=== PATIENT | female | born 1950 | race Caucasian/White ===

== ENCOUNTER 2018-02-20 14:20 | Outpatient (CLI) | payer MEDICARE | END 2018-02-20 14:21 | disposition home or self-care (01) | LOC: BICMAMMO 14:20 | PROVIDERS: ATTEND Obstetrics & Gynecology | DX: Z12.31 Encounter for screening mammogram for malignant neoplasm of breast (principal) | CPT/HCPCS: 77063; 77067 ==

== ENCOUNTER 2018-10-08 21:44 | Inpatient (IN) | payer MEDICARE ==
[2018-10-09] MEDS ORDERED: Magnesium 2 GM/50 ML 2 GM in Premix Bag 1 BAG IVPB SCH (10:15)
--- NOTE | 2018-10-09 11:25 | RAD ---
CHEST ONE VIEW: HISTORY: Preop. COMPARISON: None. FINDINGS: The cardiac silhouette is magnified by projection. The pulmonary vasculature is unremarkable. The m ediastinum is midline with aortic calcification. No lobar consolidation or evidence of pneumothorax. IMPRESSION: 1. Atherosclerosis. 2. No active cardiopulmonary abnormalities are otherwise demonstrated. POS: [facility]
[2018-10-09] MEDS ORDERED: Promethazine HCl 25 MG/ML VIAL IM PRN (11:45)
[2018-10-09] MEDS ORDERED: Ondansetron PF 4 MG/2 ML Vial IVP PRN (11:45)
[2018-10-09] MEDS ORDERED: Sodium Chloride 0.9% 1,000 ML IV SCH (11:45)
[2018-10-09] MEDS ORDERED: Dextrose 50% Abboject 50 ML SYRINGE SLOW IVP PRN (11:45)
[2018-10-09] MEDS ORDERED: hydrALAZINE 20 MG/ML VIAL SLOW IVP PRN (11:45)
[2018-10-09] MEDS ORDERED: Morphine 2 MG/ML SYRINGE SLOW IVP PRN (11:45)
[2018-10-09] MEDS ORDERED: Dextrose 5% in Water 1,000 ML IV PRN (11:45)
[2018-10-09] MEDS ORDERED: traMADol HCl 50 MG TAB PO PRN (11:50)
--- NOTE | 2018-10-09 11:54 | RAD ---
PELVIS ONE VIEW: HISTORY: Fall. COMPARISON: None. FINDINGS: Mild degenerative disease of both SI joints. Small bilateral acetabular osteophyte formation. Moder ate vascular calcifications. Phleboliths in the pelvis. Intertrochanteric fracture, left femur. IMPRESSION: Intertrochanteric fracture, left femur, without significant displacement. POS: [facility]
--- NOTE | 2018-10-09 12:09 | RAD ---
LEFT HIP TWO VIEWS: HISTORY: Fall with left hip pain. FINDINGS: Two views of the left hip show an intratrochanteric fracture of the left femur. No degenerative sanchez ges are seen in the left hip. IMPRESSION: Intertrochanteric left femur fracture. POS: [facility]
--- NOTE | 2018-10-09 12:10 | HP ---
ATTENDING SURGEON: Dr. Espinoza. TRAUMA ACTIVATION: Not applicable. HISTORY OF PRESENT ILLNESS: This is a 67-year-old female, who presented to [facility] Emergency Room, status post mechanical fall approximately 5 days ago. Per patient, she was at home in her kitchen, attempting to make a baked potato when she slipped on some butter and fell, striking her left hip. The patient denies head trauma or loss of consciousness. She had immediate onset of left lower extremity pain with difficulty to ambulate, so she crawled to her room where she laid for the next five days, relatively immobile. Earlier today, she decided to leave her room to get help. She was seen and evaluated in emergency room and found to have a left subtrochanteric hip fracture. Orthopedic Surgery was notified and Trauma Service was asked to admit. Upon my evaluation, the patient has a chief complaint of left hip pain, worsened with movement, improved with rest and pain medications. The patient does admit to some delirium since the time of her accident, but states she was otherwise in her normal state of health. She also endorses malodorous urine. MEDICAL HISTORY: ALLERGIES: CODEINE. PAST MEDICAL HISTORY: Hypertension, vertigo, macular degeneration. HOME MEDICATIONS: The patient states she takes antihypertensives, but does not know the name or dose. Pharmacy is [facility]. PAST SURGICAL HISTORY: Partial hysterectomy later turned into a complete hysterectomy, stomach banding. FAMILY HISTORY: Significant for mother from an unknown cancer. Sister , bladder cancer. Father with history of prostate cancer and dementia. SOCIAL HISTORY: The patient lives alone. Ambulates independently. She drinks vodka 1 to 2 drinks on almost daily basis. She is a one pack per day smoker greater than 50 years. REVIEW OF SYSTEMS: A 10-point review of systems is performed and essentially negative except as indicated in HPI. PHYSICAL EXAMINATION: VITAL SIGNS: On evaluation, heart rate 62, blood pressure 100/66, O2 saturation 96% on room air, and respiratory rate of 16. GENERAL: Well-developed, elderly female, in no acute distress, resting in bed. HEENT: Head is normocephalic, atraumatic. Eyes, pupils are PERRL. Extraocular movements are intact. NECK: Supple. Trachea is midline. Range of motion was within normal limits for patient. CHEST: Atraumatic. Nontender to palpation. Normal work of breathing. Symmetric rise. LUNGS: Clear to auscultation bilaterally. CARDIOVASCULAR: Regular rate and rhythm. No obvious murmurs, rubs, or gallops. GI: Abdomen is atraumatic, soft, nontender, nondistended. Bowel sounds are positive. There is no palpable organomegaly. MUSCULOSKELETAL: Pelvis is stable. BACK: Within normal limits for the patient. EXTREMITIES: Bilateral upper extremities within normal limits. Right lower extremity within normal limits. Left lower extremity range of motion is limited secondary to pain. She is neurovascularly intact distal to site of her injury. There is no pedal edema. NEUROLOGIC: GCS is 15. No focal deficit is noted. LABORATORY FINDINGS: WBC 10.2, hemoglobin 14.4, hematocrit 43.3, and platelet count 348. Sodium 135, potassium 4.3, chloride 97, carbon dioxide 21, BUN 76, creatinine 2.51, glucose 98. CK is 1007. AST and ALT within normal limits. T bilirubin 0.7. Urinalysis and troponins are pending. EKG with normal sinus rhythm, heart rate of 61, nonspecific T-wave inversions in precordial leads. Chest x-ray, reviewed by me with no acute cardiopulmonary process, hyperinflated lungs. Left hip x-ray reported preliminary read by Radiology as left subtrochanteric hip fracture. ASSESSMENT: 1. Status post mechanical fall. 2. Left subtrochanteric hip fracture. 3. Acute traumatic pain. 4. Abnormal EKG. 5. Acute kidney injury. 6. Mild rhabdomyolysis. 7. History of hypertension. 8. Reported delirium at home. PLAN: [place] to [place]. The patient should be n.p.o. with medications. Orthopedic Surgery plans for operative intervention pending clearance. Echocardiogram given abnormal EKG and long smoking history. Reconcile home medications. IV fluids and fully monitor urine output. Urinalysis. Repeat a.m. labs. Perioperative pain management with p.o. and IV analgesics. Postoperative PT and OT. DVT and gastritis prophylaxis when appropriate. The patient was discussed with Trauma attending. Plan for admission was discussed with the patient. All questions were answered at the time of dictation. Job ID: [id number] MTDD
--- NOTE | 2018-10-09 12:15 | CON ---
DATE OF CONSULTATION: 10/09/2018 This is Mayela Hernandez PA-C dictating a report for Riaz Arriaga MD. CONSULTING PHYSICIAN: Riaz Arriaga MD REASON FOR CONSULTATION: Left hip fracture. HISTORY OF PRESENT ILLNESS: This is a 67-year-old female, who states that approximately 5 days ago, she got up from the couch while watching a movie when she slipped and fell in her kitchen. She states that she was able to make it to her bedroom where she laid down, but then was not able to get out of bed for the next 5 days. Eventually, she was brought to our emergency department last night after some family came to check on her. She has been admitted by Trauma Services. She is currently receiving workup and further care for rhabdomyolysis and acute renal failure. We have been consulted as there was a finding of a left hip fracture on her ER evaluation. Currently at bedside, the patient reports left hip pain. Denies numbness or tingling. Denies hitting her head or any loss of consciousness at the time of the fall. She denies any other extremity pain at this time. PAST MEDICAL HISTORY: Significant for hypertension. PAST SURGICAL HISTORY: Significant for partial hysterectomy, multiple tooth extractions, and lap band surgery. SOCIAL HISTORY: The patient lives at home alone. She is an independent ambulator. [place] She is a smoker and a drinker. She states she smokes approximately 1 pack per day and drinks vodka daily approximately 5 shots per day. FAMILY HISTORY: Reviewed, noncontributory. REVIEW OF SYSTEMS: A 10-point review of systems conducted and otherwise negative except for stated above. PHYSICAL EXAMINATION: VITAL SIGNS: Temperature of 97.6, pulse of 65, respiratory rate of 20, and blood pressure of 98/66. GENERAL: The patient is awake and alert. She is in no apparent distress. She is evaluated in the step-down unit at this time. No family is currently at bedside. She is awake and comfortable. She is pleasant with exam findings today. HEENT: Head is normocephalic and atraumatic. NECK: Supple. Trachea midline. Breathing nonlabored. EXTREMITIES: The left lower extremity was evaluated. There is no significant shortening noticed, slight external rotation. She is able to move her toes. No lesions to the skin overlying the left hip. RADIOGRAPHIC FINDINGS: Reviewed including 2 views of the left hip as well as an AP pelvis, demonstrates a basicervical intertrochanteric hip fracture with minimal displacement. No other acute fractures are noticeable. ASSESSMENT: Left hip fracture. PLAN: At this time, the patient is admitted to Trauma Services. She has not been cleared for surgery secondary to poor renal function. She will be managed by the Trauma Services. We will check on her again in the morning and see if she is improved overnight, if she will be cleared for surgery. We will plan on open reduction and internal fixation of this fracture tomorrow or as soon as she is cleared by Trauma Services. Plan of care discussed with the patient today. She verbalized understanding and is amenable to the plan of care. Risks, benefits, and alternatives discussed at length with her today. These include, but are not limited to bleeding, infection, nonunion, malunion or worsening in her condition. We will proceed with the plan of care and hopefully make her n.p.o. after midnight tonight. Job ID: [id number]
--- NOTE | 2018-10-09 12:18 | RAD ---
LEFT FEMUR TWO VIEWS: HISTORY: Fall. COMPARISON: None. FINDINGS: There is an intertrochanteric fracture of the left femur, along with varus angulation and impaction. The distal femur is intact. Mild vascular calcifications. IMPRESSION: Intertrochanteric fracture, left femur. POS: [facility]
[2018-10-09 12:30] LABS: Troponin I 0.027 ng/mL (< 0.028)
[2018-10-09 12:32] LABS: Lactic Acid 1.2 mmol/L (0.5-2.2)
[2018-10-09 12:37] VITALS: BMI 22.4
[2018-10-09] MEDS ORDERED: Hydrocortisone Sod Succ/PF 100 mg/2 ml Vial IVP SCH (13:00)
[2018-10-09] MEDS ORDERED: Morphine 2 MG/ML SYRINGE SLOW IVP SCH (13:00)
[2018-10-09] MEDS: Acetaminophen 500 MG TAB PO SCH ×2 (13:23→17:51)
[2018-10-09] MEDS: Oxazepam 10 MG CAP PO SCH ×2 (13:23→20:34)
[2018-10-09 14:28] LABS: Hemoglobin 12.1 g/dL (12.0-16.0); Mean Corpuscular HGB CONC 32.9 g/dL (32.0-36.0); Mean Corpuscular Hemoglobin 35.4 pg (27.0-31.0); Mean Platelet Volume 7.4 fL (7.4-10.4); Platelet Count 302 thou/uL (130-400); RBC Distribution Width 12.2 % (11.5-14.5); Red Blood Cell (RBC) Count 3.42 mill/uL (4.20-5.40); White Blood Cell (WBC) Count 8.2 thou/uL (4.8-10.8)
[2018-10-09 14:29] LABS: #Basophils 0.1 thou/uL (0.0-0.2); #Eosinphils 0.2 thou/uL (0.0-0.7); #Lymphocytes 1.4 thou/uL (1.20-3.40); #Monocytes 0.9 thou/uL (0.11-0.59); #Neutrophils 5.7 thou/uL (1.40-6.50); %Basophils 0.8 % (0.0-1.0); %Eosinophils 1.9 % (0.0-10.0); %Lymphocytes 16.9 % (21.0-51.0); %Monocytes 10.6 % (0.0-10.0); %Neutrophils 69.8 % (42.0-75.0); Macrocytosis SLIGHT = 6-15 cells (100X) (0-5/hpf); Platelet Morphology Comment Appears Adequate
[2018-10-09 14:45] LABS: Anion Gap 15 mmol/L (10-20); BUN (Urea Nitrogen) 76 mg/dL (9.8-20.1); Calc. Creatinine Clearance 23 mL/min (70-130); Calcium 8.7 mg/dL (7.8-10.44); Carbon Dioxide 20 mmol/L (23-31); Chloride 105 mmol/L (98-107); Estimated GFR-MDRD 20; Glucose 83 mg/dL (80-115); Magnesium 1.7 mg/dL (1.6-2.6); Phosphorus 4.9 mg/dL (2.3-4.7); Potassium 4.4 mmol/L (3.5-5.1); Sodium 136 mmol/L (136-145)
[2018-10-09] MEDS: Sodium Bicarbonate 150 MEQ in Dextrose 5% in Water 1,000 ML IV SCH ×2 (14:45→20:34)
[2018-10-09 14:46] LABS: Troponin I 0.043 ng/mL (< 0.028)
[2018-10-09 16:19] LABS: Bilirubin Large (Negative); Blood, Urine Negative (Negative); Clarity Turbid (Clear); Glucose, Urine (Dipstick) Negative (Negative); Leukocyte Moderate (Negative); Nitrite Negative (Negative); Protein, Urine (Dipstick) 30 mg/dL (Neg-Trace); Specific Gravity, Urine 1.019 (1.002-1.036)
[2018-10-09 16:20] LABS: Bacteria/HPF 4+ HPF (None Seen); Hyaline Casts/LPF NONE SEEN LPF (0-3 Hyaline); RBC/HPF 0-3 HPF (0-3); Squamous Epithelial None Seen HPF (0-3)
--- NOTE | 2018-10-09 16:27 | PRG ---
DATE OF SERVICE: 10/09/2018 SUBJECTIVE: The patient was seen this morning lying in bed. Reported pain is well controlled. Asking to have food and water. Otherwise, she had no complaints. Overnight, the patient did receive 2 L of IV fluids and 1 L of albumin for low urinary output and hypotension. The patient is otherwise not tachycardic and hemoglobin is stable. Yesterday, troponins were slightly elevated and the patient had diffuse T-wave inversions on EKG. Echo is pending at this time. CK was also elevated at 1000. The patient with rhabdo and acute kidney injury, monitored at this time. She denies nausea, vomiting, and diarrhea. OBJECTIVE: VITAL SIGNS: Temperature 97.6, pulse 65, respirations 20, oxygen saturation 99% on room air, blood pressure 98/66. GENERAL: Well-appearing elderly female, lying in bed with no signs of acute distress. RESPIRATORY: Equal chest rise and fall. Clear breath sounds bilaterally. No signs of acute respiratory distress. CARDIAC: Regular rate and rhythm. No murmurs, gallops, or rubs. GASTROINTESTINAL: Abdomen is soft, nontender, nondistended. Pelvis is stable. Left hip with mild tenderness. EXTREMITIES: 2+ pulses in all extremities. No significant swelling noted. GENITOURINARY: Garnica in place with orange urine in bag. NEURO: GCS is 15. Gross motor and sensation is intact. No signs of alcohol withdrawal. LABORATORY FINDINGS: White count 8.2, hemoglobin 12.1, hematocrit 36.9, platelets 302. Sodium 136, potassium 4.4, chloride 105 carbon dioxide 20, BUN 76, creatinine 2.43, glucose 83, lactic acid 1.2, phos 4.9, magnesium 1.7. CK 415, troponin 0.45, then 0.27. DIAGNOSTIC FINDINGS: Echo completed today demonstrates no cardiac dysfunction. ASSESSMENT: 1. Status post mechanical fall with prolonged down time. 2. Left hip fracture. 3. Rhabdomyolysis. 4. Renal failure secondary to rhabdomyolysis. 5. Acute dehydration. PLAN: The patient is to remain in the IMCU. Dr. Arriaga of Orthopedic Surgery would like take the patient to the OR for fixation of the left hip fracture. However, this will be delayed until tomorrow. The patient's kidney function has not yet improved. The patient to receive bicarb at 150 an hour. We will discontinue normal saline at 150 an hour. Continue Garnica and monitor urinary output q.1 hour. Magnesium replaced. The patient also started on Serax to prevent alcohol withdrawal. The patient can have a regular diet today and will be n.p.o. over midnight in case she is ready to go to the OR tomorrow with Dr. Arriaga. She will work with Physical and Occupational Therapy postoperatively. Also, follow up cortisol level. The patient was seen and examined by Dr. Arevalo and myself this morning during rounds. Job ID: [id number]
[2018-10-09 17:52] LABS: ALT (SGPT) 22 U/L (8-55); AST (SGOT) 57 U/L (5-34); Albumin 4.5 g/dL (3.4-4.8); Alkaline Phosphatase 76 U/L (40-150); Anion Gap 21 mmol/L (10-20); BUN (Urea Nitrogen) 76 mg/dL (9.8-20.1); Bilirubin, Total 0.7 mg/dL (0.2-1.2); CK (CPK) 1007 U/L (29-168); Calc. Creatinine Clearance 22 mL/min (70-130); Calcium 10.8 mg/dL (7.8-10.44); Carbon Dioxide 21 mmol/L (23-31); Chloride 97 mmol/L (98-107); Estimated GFR-MDRD 19; Globulin 3.4 g/dL (2.4-3.5); Glucose 98 mg/dL (80-115); Potassium 4.3 mmol/L (3.5-5.1); Protein, Total 7.9 g/dL (5.8-8.1); Sodium 135 mmol/L (136-145)
[2018-10-09 17:57] LABS: Hemoglobin 14.4 g/dL (12.0-16.0); Mean Corpuscular HGB CONC 33.2 g/dL (32.0-36.0); White Blood Cell (WBC) Count 10.2 thou/uL (4.8-10.8)
[2018-10-09 17:58] LABS: #Eosinphils 0.1 thou/uL (0.0-0.7); #Lymphocytes 1.8 thou/uL (1.20-3.40); #Monocytes 1.5 thou/uL (0.11-0.59); #Neutrophils 6.7 thou/uL (1.40-6.50); %Basophils 0.4 % (0.0-1.0); %Eosinophils 1.3 % (0.0-10.0); %Lymphocytes 17.9 % (21.0-51.0); %Monocytes 14.7 % (0.0-10.0); %Neutrophils 65.7 % (42.0-75.0); Mean Platelet Volume 7.4 fL (7.4-10.4); Platelet Count 348 thou/uL (130-400); RBC Distribution Width 12.2 % (11.5-14.5)
[2018-10-09] MEDS ORDERED: traMADol HCl 50 MG TAB PO SCH (18:00)
[2018-10-09 18:35] LABS: INR-International Normal Ratio 0.9; PTT 23.9 SEC (22.9-36.1); Prothrombin Time 12.7 SEC (12.0-14.7)
[2018-10-09 20:32] LABS: CKMB 2.8 ng/mL (0-6.6); Troponin I 0.028 ng/mL (< 0.028)
[2018-10-09] MEDS: Famotidine 20 MG TAB PO SCH (20:35)
[2018-10-09] MEDS: Senokot S 8.6-50 MG TAB PO SCH (20:35)
[2018-10-09] MEDS: traMADol HCl 50 MG TAB PO PRN (21:08)
[2018-10-10] MEDS: Acetaminophen 500 MG TAB PO SCH ×5 (01:15→23:16)
[2018-10-10] MEDS: Oxazepam 10 MG CAP PO SCH ×4 (03:50→20:23)
[2018-10-10] MEDS: Sodium Bicarbonate 150 MEQ in Dextrose 5% in Water 1,000 ML IV SCH (04:21)
[2018-10-10] MEDS: traMADol HCl 50 MG TAB PO PRN (05:58)
[2018-10-10] MEDS ORDERED: Hydrocortisone Sod Succ/PF 100 mg/2 ml Vial IVP SCH (07:23)
[2018-10-10] MEDS: Hydrocortisone Sod Succ/PF 100 mg/2 ml Vial IVP SCH ×3 (08:00→20:24)
[2018-10-10] MEDS: Famotidine 20 MG TAB PO SCH (09:00)
[2018-10-10 09:06] LABS: #Eosinphils 0.2 thou/uL (0.0-0.7); #Lymphocytes 1.7 thou/uL (1.20-3.40); #Monocytes 0.9 thou/uL (0.11-0.59); %Basophils 0.5 % (0.0-1.0); %Eosinophils 1.9 % (0.0-10.0); %Lymphocytes 19.4 % (21.0-51.0); %Monocytes 10.1 % (0.0-10.0); %Neutrophils 68.1 % (42.0-75.0); Mean Corpuscular HGB CONC 33.8 g/dL (32.0-36.0); Mean Corpuscular Hemoglobin 36.8 pg (27.0-31.0); Mean Platelet Volume 7.2 fL (7.4-10.4); Platelet Count 262 thou/uL (130-400); RBC Distribution Width 12.2 % (11.5-14.5); White Blood Cell (WBC) Count 8.7 thou/uL (4.8-10.8)
[2018-10-10 09:23] LABS: MDiff Complete? YES; Macrocytosis SLIGHT = 6-15 cells (100X) (0-5/hpf); Platelet Morphology Comment Appears Adequate
[2018-10-10 09:24] LABS: Lactic Acid 1.1 mmol/L (0.5-2.2)
[2018-10-10 09:29] LABS: Anion Gap 11 mmol/L (10-20); BUN (Urea Nitrogen) 53 mg/dL (9.8-20.1); CK (CPK) 142 U/L (29-168); Calc. Creatinine Clearance 38 mL/min (70-130); Calcium 8.6 mg/dL (7.8-10.44); Carbon Dioxide 29 mmol/L (23-31); Chloride 98 mmol/L (98-107); Estimated GFR-MDRD 36; Glucose 98 mg/dL (80-115); Magnesium 2.1 mg/dL (1.6-2.6); Phosphorus 2.6 mg/dL (2.3-4.7); Potassium 3.3 mmol/L (3.5-5.1); Sodium 135 mmol/L (136-145)
[2018-10-10] MEDS ORDERED: Fentanyl 100 MCG/2 ML VIAL ONE ×2 (12:13→12:34)
[2018-10-10] MEDS ORDERED: Prevnar 13-Val Conj/PF 0.5 ML SYRINGE IM ONE (13:30)
[2018-10-10] MEDS: Polyethylene Glycol 3350 17 GM Packet PO SCH (13:30)
[2018-10-10] MEDS: Senokot S 8.6-50 MG TAB PO SCH ×2 (13:31→20:24)
[2018-10-10] MEDS: traMADol HCl 50 MG TAB PO SCH ×3 (13:33→23:16)
[2018-10-10] MEDS: Lactated Ringer's 1,000 ML IV SCH ×2 (13:58→23:20)
[2018-10-10] MEDS ORDERED: CEFAZOLIN 2 GM in Premix Bag 1 BAG IVPB SCH (14:00)
--- NOTE | 2018-10-10 14:27 | RAD ---
LEFT HIP TWO VIEWS: HISTORY: Status post ORIF. FINDINGS: A compression screw has been placed, stabilizing an intertrochanteric fracture of the left hip. IMPRESSION: Status post compression screw, open reduction and internal fixation, left hip, intertrochanteric frac ture. POS: [facility]
[2018-10-10] MEDS ORDERED: ePHEDrine 50 MG/ML VIAL ONE (16:10)
[2018-10-10] MEDS ORDERED: Ondansetron PF 4 MG/2 ML Vial ONE (16:10)
[2018-10-10] MEDS ORDERED: PROPOFOL 200 MG/20 ML VIAL ONE (16:10)
[2018-10-10] MEDS ORDERED: Rocuronium Bromide 10 MG/ML (10ML VIAL) ONE (16:10)
[2018-10-10] MEDS ORDERED: Dexamethasone 20 MG/5 ML VIAL ONE (16:10)
[2018-10-10] MEDS ORDERED: Sulfameth/Trimethoprim DS 800-160mg TAB PO SCH (16:45)
--- NOTE | 2018-10-10 17:03 | PRG ---
DATE OF SERVICE: 10/10/2018 SUBJECTIVE: Kacy Esteban is a 67-year-old female, status post ground level fall resulting in a left hip fracture. She is hospital day 2, postop day 0. The patient is being seen postoperatively. Upon my evaluation, she has a complaint of minimal left hip pain. Otherwise, she vocalized no complaint. OBJECTIVE: VITAL SIGNS: Most recent vital signs; blood pressure 133/82, pulse 63, respirations 18, O2 saturation 91% and 93% on room air. GENERAL: Elderly appearing female, in no acute distress, resting in bed. PULMONARY: Normal work of breathing. Symmetric rise. CARDIOVASCULAR: Regular rate and rhythm. GI: Abdomen is soft, nontender, nondistended. MUSCULOSKELETAL: Moves all extremities x4. NEURO: No focal deficit is noted. LABORATORY FINDINGS: WBC 8.7, hemoglobin 11.0, hematocrit 32.7, and platelet count 262. Sodium 135, potassium 3.3, chloride 98, carbon dioxide 29, BUN 53, creatinine 1.45, glucose 98, phosphorus 2.6, magnesium 2.1. CK 142. Urinalysis, microbiology with presumptive E coli greater than 100,000 colony-forming units. ASSESSMENT: 1. Status post ground level fall. 2. Left hip fracture, postop day 0. 3. Acute traumatic pain. 4. Escherichia coli urinary tract infection present on admission. 5. Mild rhabdomyolysis, resolved. 6. Acute renal failure, improving. 7. Acute blood loss anemia. 8. Electrolyte abnormality. 9. Adrenal insufficiency PLAN: Start the patient on antibiotics for 5 days for UTI. The patient's cortisol level was 11 on hospital admission associated with hypotension. We will continue IV steroids until out of the immediate postoperative window. Postoperative pain management with p.o. analgesics. Postoperative PT and OT. Discontinue Garnica in the morning. The patient is a daily drinker, continue Serax. A.m. labs. Continue to monitor and transfuse for hemoglobin less than 7 or symptomatic anemia. Rehab screen as the patient lived independently prior to her accident. Plan of care was discussed with the patient at bedside and all questions were answered at the time of dictation. The patient was discussed with Trauma attending. Job ID: [id number] [facility]
--- NOTE | 2018-10-10 17:49 | OP ---
DATE OF PROCEDURE: 10/10/2018 PROCEDURE PERFORMED: Left proximal femur open reduction and fixation with dynamic hip screw. PREOPERATIVE DIAGNOSIS: Left intertrochanteric femur fracture. POSTOPERATIVE DIAGNOSIS: Left intertrochanteric femur fracture. COMPLICATIONS: None. ESTIMATED BLOOD LOSS: 100 mL. ANESTHESIA: General. SCHEDULING SPECIALIST: Mayela Hernandez PA-C. IMPLANTS: Synthes DHS screw and side plate 3-hole, 135 degree. INDICATIONS: Ms. Esteban is a 67-year-old female, who has fallen and fractured the left proximal femur. She was indicated for dynamic hip screw fixation to restore anatomic alignment, promote healing, and prevent complications of prolonged bedrest. Risks have been reviewed in detail. She elected to proceed with the operation. DESCRIPTION OF PROCEDURE: Ms. Esteban was identified in the preoperative holding area. Her correct extremity was marked. She was carried to the operating room. She was positioned supine. General anesthesia was induced. A multidisciplinary time-out was performed. The left lower extremity was prepped and draped in a sterile fashion. At this point, we proceeded with incision over the proximal thigh. We dissected down through the subcutaneous tissues to the fascia, which was opened. We retracted the vastus lateralis anteriorly and then exposed the femur. At this point, we placed a 135-degree guide. This was evaluated with x-ray. We inserted a guidewire in the center-center position of the femoral head. We measured and then over-reamed the guidewire with the triple reamer. We then placed an 85-mm hip screw and impacted a 3-hole side plate. Three screws were placed in the plate. We took final x-ray images. There were no complications. We closed in layers appropriately. The patient was taken to the recovery room. Job ID: [id number]
[2018-10-10] MEDS: CEFAZOLIN 2 GM in Premix Bag 1 BAG IVPB SCH (18:24)
[2018-10-10] MEDS ORDERED: DEXTROSE 5% IVPB SCH (21:00)
[2018-10-10] MEDS ORDERED: WATER IVPB SCH (21:00)
[2018-10-10] MEDS ORDERED: SULFAMETHOXAZOLE IVPB SCH (21:00)
[2018-10-10] MEDS ORDERED: TRIMETHOPRIM IVPB SCH (21:00)
[2018-10-11] MEDS: Hydrocortisone Sod Succ/PF 100 mg/2 ml Vial IVP SCH ×4 (02:46→20:01)
[2018-10-11] MEDS: CEFAZOLIN 2 GM in Premix Bag 1 BAG IVPB SCH (02:47)
[2018-10-11] MEDS: traMADol HCl 50 MG TAB PO SCH ×4 (04:37→22:16)
[2018-10-11] MEDS: Oxazepam 10 MG CAP PO SCH ×3 (04:37→20:02)
[2018-10-11] MEDS: Acetaminophen 500 MG TAB PO SCH ×3 (05:55→18:06)
[2018-10-11] MEDS: Lactated Ringer's 1,000 ML IV SCH ×2 (05:57→18:09)
[2018-10-11 06:49] LABS: #Lymphocytes 0.6 thou/uL (1.20-3.40); #Monocytes 0.8 thou/uL (0.11-0.59); #Neutrophils 7.5 thou/uL (1.40-6.50); %Eosinophils 0.1 % (0.0-10.0); %Lymphocytes 7.2 % (21.0-51.0); %Monocytes 8.4 % (0.0-10.0); %Neutrophils 84.3 % (42.0-75.0); Hemoglobin 10.8 g/dL (12.0-16.0); Mean Corpuscular Hemoglobin 35.8 pg (27.0-31.0); Mean Platelet Volume 7.5 fL (7.4-10.4); Platelet Count 282 thou/uL (130-400); RBC Distribution Width 11.8 % (11.5-14.5); Red Blood Cell (RBC) Count 3.01 mill/uL (4.20-5.40); White Blood Cell (WBC) Count 8.9 thou/uL (4.8-10.8)
[2018-10-11 07:06] LABS: Anion Gap 10 mmol/L (10-20); BUN (Urea Nitrogen) 33 mg/dL (9.8-20.1); Calc. Creatinine Clearance 52 mL/min (70-130); Calcium 8.8 mg/dL (7.8-10.44); Carbon Dioxide 33 mmol/L (23-31); Chloride 95 mmol/L (98-107); Estimated GFR-MDRD 44; Glucose 117 mg/dL (80-115); Magnesium 1.8 mg/dL (1.6-2.6); Phosphorus 2.7 mg/dL (2.3-4.7); Sodium 134 mmol/L (136-145)
[2018-10-11] MEDS: Polyethylene Glycol 3350 17 GM Packet PO SCH (08:51)
[2018-10-11] MEDS: Multivitamin W/ Minerals 1 TAB PO SCH (08:51)
[2018-10-11] MEDS: Senokot S 8.6-50 MG TAB PO SCH ×2 (08:51→20:05)
[2018-10-11] MEDS: Thiamine 100 MG TAB PO SCH (08:51)
[2018-10-11] MEDS: Folic Acid 1 MG TAB PO SCH (08:52)
[2018-10-11] MEDS: Sulfameth/Trimethoprim DS 800-160mg TAB PO SCH ×2 (08:52→20:02)
[2018-10-11] MEDS: Famotidine 20 MG TAB PO SCH (08:52)
[2018-10-11] MEDS: traMADol HCl 50 MG TAB PO PRN (09:12)
--- NOTE | 2018-10-11 14:56 | PRG ---
DATE OF SERVICE: 10/11/2018 SUBJECTIVE: This is a 67-year-old lady, status post ground level fall resulting in a left hip fracture. She is hospital day #3, postop day #1. The patient had a delayed presentation post fall approximately 5 days. The patient is sitting up in the chair, in no acute distress. The patient vocalizes no complaints. Reports pain is controlled at this time. The patient has been ambulating with a walker with physical therapy. OBJECTIVE: VITAL SIGNS: Temperature 98.0, pulse 60, respirations 16, SpO2 of 93% on 1.5 L, and blood pressure 120/78. GENERAL: The patient is awake and alert, in no acute distress, elderly appearing, sitting up in the chair. PULMONARY: Normal work of breathing, symmetric chest rise. CARDIOVASCULAR: Regular rate and rhythm. GI: Abdomen is soft, nontender, and nondistended. MUSCULOSKELETAL: Moves all extremities x4, positive distal pulses. NEURO: No focal deficits. LABORATORY DATA: WBC 8.9, RBC 3.01, hemoglobin 10.8, hematocrit 32.7, and platelets 282. Sodium 134, potassium 4.0, chloride 95, BUN 33, creatinine 1.22, estimated GFR 44, glucose 117, calcium 8.8, phosphorus 2.7, and magnesium 1.8. ASSESSMENT: 1. Status post ground level fall. 2. Left hip fracture, postop day #1. 3. Urinary tract infection present on admission. 4. Mild rhabdomyolysis, resolved. 5. Acute renal failure, improving. 6. Acute blood loss anemia, stable. 7. Adrenal insufficiency, improving. PLAN: Continue the patient's antibiotics for UTI. Continue IV steroids for adrenal insufficiency. Continue pain regimen. Continue physical and occupational therapy. We will discontinue the patient's Garnica. Continue Serax as the patient is a daily drinker. The patient is pending rehab screen. The plan was discussed with the patient, who agrees, but also states that her family is coming into town from [place] and most likely will be able to go home. The plan was discussed with the attending physician, who agrees. Job ID: [id number]
[2018-10-12] MEDS: Acetaminophen 500 MG TAB PO SCH ×5 (00:31→23:26)
[2018-10-12] MEDS: Hydrocortisone Sod Succ/PF 100 mg/2 ml Vial IVP SCH ×3 (02:27→20:23)
[2018-10-12] MEDS: traMADol HCl 50 MG TAB PO SCH ×4 (04:31→21:42)
[2018-10-12] MEDS: Lactated Ringer's 1,000 ML IV SCH ×3 (04:31→21:43)
[2018-10-12] MEDS: Oxazepam 10 MG CAP PO SCH ×3 (04:31→20:24)
[2018-10-12] MEDS: Folic Acid 1 MG TAB PO SCH (08:25)
[2018-10-12] MEDS: Sulfameth/Trimethoprim DS 800-160mg TAB PO SCH ×2 (08:25→20:24)
[2018-10-12] MEDS: Multivitamin W/ Minerals 1 TAB PO SCH (08:25)
[2018-10-12] MEDS: Famotidine 20 MG TAB PO SCH (08:25)
[2018-10-12] MEDS: Thiamine 100 MG TAB PO SCH (08:25)
[2018-10-12] MEDS: traMADol HCl 50 MG TAB PO PRN (08:28)
[2018-10-12] MEDS: Polyethylene Glycol 3350 17 GM Packet PO SCH (08:34)
[2018-10-12] MEDS: Senokot S 8.6-50 MG TAB PO SCH ×2 (08:34→20:25)
--- NOTE | 2018-10-13 00:17 | PRG ---
DATE OF SERVICE: 10/12/2018 SUBJECTIVE: This is a 67-year-old lady, status post ground level fall resulting in left hip fracture. The patient is postop day #2. The patient did have a delayed presentation 5 days post injury. The patient is ambulating with a walker with physical therapy. The patient reports pain is well controlled. The patient had no overnight events. OBJECTIVE: VITAL SIGNS: Temperature 98.1, pulse 73, respirations 16, SpO2 of 94% on 2 L, and blood pressure 148/84. GENERAL: The patient is awake, alert, in no distress. PULMONARY: Normal work of breathing, chest is symmetrical. CARDIOVASCULAR: Regular rate and rhythm. GI: Abdomen is soft, nontender, nondistended. MUSCULOSKELETAL: Moves all extremities, positive distal pulses. NEUROLOGICAL: No focal deficits. LABORATORY DATA: There is no labs to evaluate today. IMPRESSION: 1. Status post ground level fall. 2. Left hip fracture, postop day #2. 3. Urinary tract infection, present on admission. 4. Mild rhabdomyolysis, resolved. 5. [id number] renal failure, stage 3. 6. Acute blood loss anemia, stable. 7. Adrenal insufficiency, improved. PLANS: Continue the patient's antibiotics. We will taper the patient's steroids for adrenal insufficiency as blood pressures improve. We will continue supportive care. We will continue Physical and Occupational Therapy. The patient wishes to go home with family. We will re-evaluate the patient tomorrow and make sure she is safe to go home using a walker. The plan has been discussed with the patient who agrees. The plan was discussed with the attending physician, who agrees. Job ID: [id number]
[2018-10-13] MEDS: Oxazepam 10 MG CAP PO SCH ×2 (03:40→13:58)
[2018-10-13] MEDS: traMADol HCl 50 MG TAB PO SCH ×3 (03:40→17:09)
[2018-10-13] MEDS: Acetaminophen 500 MG TAB PO SCH ×2 (06:06→13:57)
[2018-10-13] MEDS: Folic Acid 1 MG TAB PO SCH (08:38)
[2018-10-13] MEDS: Sulfameth/Trimethoprim DS 800-160mg TAB PO SCH (08:38)
[2018-10-13] MEDS: Multivitamin W/ Minerals 1 TAB PO SCH (08:38)
[2018-10-13] MEDS: Polyethylene Glycol 3350 17 GM Packet PO SCH (08:39)
[2018-10-13] MEDS: Senokot S 8.6-50 MG TAB PO SCH (08:39)
[2018-10-13] MEDS: Thiamine 100 MG TAB PO SCH (08:39)
[2018-10-13] MEDS ORDERED: Aspirin 81 mg Enteric Coated Tablet PO SCH (09:00)
[2018-10-13] MEDS: Hydrocortisone Sod Succ/PF 100 mg/2 ml Vial IVP SCH (15:14)
[2018-10-13] MEDS: Lactated Ringer's 1,000 ML IV SCH (15:15)
[2018-10-13 16:35] VITALS: BP 138/82; TEMP 97.7
[2018-10-13] MEDS ORDERED: Lisinopril/Hydrochlorothiazide 20 mg/12.5 mg Tablet PO SCH (21:00)
--- NOTE | 2018-10-14 04:40 | DIS ---
DATE OF ADMISSION: 10/09/2018 DATE OF DISCHARGE: 10/13/2018 This is Rossi Sidhu NP dictating a report for Albert Espinoza MD. CONSULTS: Orthopedic Surgery, Dr. Alcala. PROCEDURES: 1. On 10/09/2018, chest x-ray, impression, atherosclerosis. No active cardiopulmonary abnormalities. 2. Femur x-ray, intertrochanteric fracture of left femur. 3. Hip x-ray, intertrochanteric left femur fracture. 4. Pelvis x-ray, intertrochanteric fracture, left femur, without significant displacement. 5. On 10/09/2018, echocardiogram. Left ventricle size is normal. Ejection fraction is visually estimated at 55% to 60%. Sinus bradycardia. Normal right ventricular size and function. 6. Left atrium is mildly dilated. Normal right atrium size. Structurally normal mitral valve. Structurally normal aortic valve with no significant stenosis or regurgitation. Mild tricuspid regurgitation. Normal pulmonary artery pressure. Trace pericardial fluid. 7. On 10/10/2018, left proximal femur, open reduction and internal fixation with dynamic hip screw by Dr. Alcala. PRIMARY DIAGNOSIS: Status post mechanical fall with left subtrochanteric hip fracture. SECONDARY DIAGNOSES: Acute traumatic pain; abnormal EKG; acute kidney injury, resolved; mild rhabdomyolysis; history of hypertension. DISCHARGE MEDICATIONS: 1. Acetaminophen 1 mg p.o. q.6 hours. 2. Aspirin 81 mg p.o. b.i.d. for 30 days. 3. Folic acid 1 mg daily. 4. Lisinopril/HCTZ 20-12.5 one p.o. b.i.d. 5. Multivitamin with minerals. 6. MiraLAX as needed. 7. Senokot as needed. 8. Bactrim DS 1 tab p.o. twice a day for 5 days total. The patient remaining 3 doses. 9. Thiamine 100 mg p.o. daily. 10. Tramadol 50 mg p.o. q.6 hours for pain. DISCONTINUED MEDICATIONS: There were no discontinued medications. HISTORY OF PRESENT ILLNESS AND HOSPITAL COURSE: This is a 67-year-old lady, who presented to the emergency room status post mechanical fall approximately 5 days prior to presenting to the emergency room. The patient states she was at home in her kitchen, attempting to make a baked potato when she slipped on some butter and fell striking her left hip. She denies any head trauma or loss of consciousness. The patient reported immediate left lower extremity pain and difficulty ambulating. The patient called her room and laid there for the next 5 days as she was immobile and unable to get to the telephone. She finally decided to leave her room and get help. She was found to have a left subtrochanteric hip fracture. Trauma Service was asked to admit the patient for continued management. Postop, the patient was able to work with Physical Therapy using a walker. Initially, the patient was screened for inpatient rehab but the patient chose to go home with Home Health as her brother from [place] came in, who is going to be staying with her and able to help her. The patient's pain was well controlled postop. On the day of discharge, the patient was examined by Dr. Arevalo. The patient's exam was unremarkable including cardiopulmonary and GI exam. The patient was deemed stable for discharge with stable vitals. The patient was discharged home with a walker and bedside commode and home health was being set up by Case Management. Home health for continued occupational and physical therapy. DISPOSITION: Stable. DISCHARGE INSTRUCTIONS: 1. Home with home health. 2. Regular diet. 3. Activity: Orthopedic limitations. Weightbearing as tolerated. 4. Followup: Follow up with Dr. Alcala as directed. Follow up with primary care physician. No need to follow up with Trauma Services, Dr. Arevalo. Please call for any questions. Job ID: [id number]
== END 2018-10-13 17:45 | disposition home or self-care (01) | DRG 481 ==
LOC: ERS 21:44 → IMCU/EMU 10-09 03:26 → SJJU 10-10 17:31
PROVIDERS: ADMIT Surgery; ATTEND Surgery
PROC: 0QS704Z Reposition Left Upper Femur with Internal Fixation Device, Open Approach (ICD-10-PCS; principal; 2018-10-10)
DX: S72.142A Displaced intertrochanteric fracture of left femur, initial encounter for closed fracture (principal); N17.9 Acute kidney failure, unspecified; M62.82 Rhabdomyolysis; N39.0 Urinary tract infection, site not specified; D62 Acute posthemorrhagic anemia; E27.40 Unspecified adrenocortical insufficiency; W01.0XXA Fall on same level from slipping, tripping and stumbling without subsequent striking against object, initial encounter; F17.210 Nicotine dependence, cigarettes, uncomplicated; R79.89 Other specified abnormal findings of blood chemistry; E86.0 Dehydration; B96.20 Unspecified Escherichia coli [E. coli] as the cause of diseases classified elsewhere; I95.9 Hypotension, unspecified; N18.3 Chronic kidney disease, stage 3 (moderate); Z60.2 Problems related to living alone; I12.9 Hypertensive chronic kidney disease with stage 1 through stage 4 chronic kidney disease, or unspecified chronic kidney disease; Y93.G3 Activity, cooking and baking; Y92.010 Kitchen of single-family (private) house as the place of occurrence of the external cause; Z88.5 Allergy status to narcotic agent; Z90.710 Acquired absence of both cervix and uterus; Z79.899 Other long term (current) drug therapy; Z79.82 Long term (current) use of aspirin
CPT/HCPCS: 36415; 51702; 71045; 72170; 76000; 80048; 81001; 82533; 82550; 82553; 83605; 83735; 84100; 84484; 85025; 85610; 85730; 86850; 86900; 86901; 87077; 87086; 93005; 93306; 96361; 96374; 96375; C1713; C1769; J0690; J1100; J1720; J2405; J2704; J3010; J3475; J3490; J7070; P9045